=== PATIENT | male | born 1960 | race African-American/Black ===

== ENCOUNTER 2016-09-29 07:51 | Inpatient (IN) | payer MEDICARE, MEDICAID ==
[~2016-09-29] VITALS: Ht 172.7 cm; Wt 88.5 kg
[2016-09-29] MEDS ORDERED: PROMETHAZINE 5 ML/6.25 MG 118ML LIQ PO ONE (10:30)
[2016-09-29 10:59] LABS: BASOPHILS % 0.8 % (0.0-2.0); EOSINOPHILS % 2.7 % (0.0-5.0); HEMATOCRIT. 43.5 % (42.0-52.0); HEMOGLOBIN. 14.2 g/dL (14.0-18.0); LYMPHOCYTES % 28.1 % (20.0-50.0); MEAN CORPUSCULAR HGB CONC 32.8 g/dL (31.0-37.0); MEAN CORPUSCULAR VOLUME 88.6 fL (80.0-94.0); MEAN PLATELET VOLUME 9.3 fl (7.4-10.4); MONOCYTES % 9.8 % (2.0-8.0); NEUTROPHILS % 58.6 % (40.0-76.0); PLATELET 203 x1000/uL (130-400); RED BLOOD CELL COUNT 4.91 mill/uL (4.7-6.1); RED CELL DISTRIBUTION WIDTH 15.7 % (11.6-14.6); WHITE BLOOD COUNT 6.8 x1000/uL (4.5-11.0)
[2016-09-29 11:02] LABS: INR 1.3; PROTHROMBIN TIME 13.2 sec
[2016-09-29 11:12] LABS: ALANINE AMINOTRANSFERASE 43 IU/L (13-61); ANION GAP 12; CALCIUM 8.7 mg/dL (8.5-10.1); CARBON DIOXIDE 26 mEq/L (21-32); CHLORIDE 107 mEq/L (98-107); INDEX HEMOLYSI 1 (1-3); INDEX ICTERIC 1 (1-4); INDEX LIPEMIC 1 (1-3); LIPASE 196 IU/L (73-393); NT PRO B-TYPE NATRIURETIC PEP 11378 pg/mL (5-125); UREA NITROGEN BLOOD 18 mg/dL (7-21); eGFR 55 mL/min (>60)
[2016-09-29] MEDS ORDERED: DEXTROSE 50% WATER 50ML SYRINGE IV PRN (20:00)
[2016-09-29] MEDS ORDERED: ONDANSETRON HCL 4MG/2ML VIAL IV PRN (20:00)
[2016-09-29] MEDS ORDERED: ACETAMINOPHEN 325MG TABLET PO PRN (20:00)
[2016-09-29] MEDS ORDERED: MAGNESIUM/ALUMINUM HYDROXIDE/SIMETHICONE 30ML UDC PO PRN (20:00)
[2016-09-29] MEDS ORDERED: CLONIDINE 0.1MG TABLET PO PRN (20:00)
[2016-09-29] MEDS ORDERED: DIPHENHYDRAMINE 50MG/ML VIAL IV PRN (20:00)
[2016-09-29 20:40] LABS: T4 FREE 1.46 ng/dL (0.76-1.46)
[2016-09-29 20:43] LABS: THYROID STIMULATING HORMONE 2.3 uIU/mL (0.36-3.74)
[2016-09-29] MEDS ORDERED: GUAIFENESIN/CODEINE 100-10MG/5ML UDC PO PRN (20:45)
[2016-09-29] MEDS ORDERED: TEMAZEPAM 15MG CAPSULE PO PRN (21:00)
[2016-09-29] MEDS: INSULIN LISPRO 100 UNITS/ML SUBCUT SCH (21:48)
[2016-09-29] MEDS: BLOOD SUGAR DIAGNOSTIC STRIP TEST SCH (21:48)
[2016-09-29] MEDS: DILTIAZEM HCL 90MG TABLET PO SCH (21:50)
[2016-09-29] MEDS: SODIUM CHLORIDE 0.9% INJ 3ML FLUSH IVF SCH (21:51)
[2016-09-29 22:36] VITALS: BP 148/124
[2016-09-30] VITALS: BP 132/103
[2016-09-30 04:00] VITALS: BP 131/110
[2016-09-30 04:37] LABS: *AMPHETAMINES SCREEN URINE NEGATIVE (NEGATIVE); *BARBITURATES SCREEN URINE NEGATIVE (NEGATIVE); *BENZODIAZEPINES SCREEN URINE NEGATIVE (NEGATIVE); *COCAINE SCREEN URINE PRESUMTIVE POSITIVE (NEGATIVE); CANNABINOID URINE SCREEN PRESUMTIVE POSITIVE (NEGATIVE); ECSTASY MDMA SCREEN URINE NEGATIVE (NEGATIVE); METHADONE URINE SCREEN NEGATIVE (NEGATIVE); OPIATES URINE SCREEN NEGATIVE (NEGATIVE); PHENCYCLIDINE URINE SCREEN NEGATIVE (NEGATIVE)
[2016-09-30] MEDS: DILTIAZEM HCL 90MG TABLET PO SCH (06:19)
[2016-09-30] MEDS: SODIUM CHLORIDE 0.9% INJ 3ML FLUSH IVF SCH ×3 (06:19→22:00)
[2016-09-30] MEDS: BLOOD SUGAR DIAGNOSTIC STRIP TEST SCH ×4 (06:22→20:35)
[2016-09-30 06:53] LABS: TROPONIN I 0.14 ng/mL (0.00-0.04)
[2016-09-30] MEDS: INSULIN LISPRO 100 UNITS/ML SUBCUT SCH ×4 (07:50→20:35)
[2016-09-30 08:00] VITALS: BP 129/97
[2016-09-30] MEDS: LOSARTAN POTASSIUM 50 MG TABLET PO SCH (09:15)
[2016-09-30] MEDS: ENOXAPARIN 40MG/0.4ML SYR SUBCUT SCH (09:15)
[2016-09-30 12:31] LABS: BG BASE EXCESS -0.7 mmol/L (-2.0-2.0); BG CARBOXYHEMOGLOBIN 0.9 % (0.5-1.5); BG DEOXYHEMOGLOBIN 3.3 % (0.0-5.0); BG FRACTION INSPIRED OXYGEN 28; BG METHEMOGLOBIN 0.3 % (0.0-1.5); BG OXYGEN SATURATION 96.7 % (92.0-98.5); BG OXYHEMOGLOBIN 95.5 % (94.0-97.0); BG PCO2 39.8 mmHg (35.0-45.0); BG PH 7.398 (7.350-7.450); BG PO2 87.1 mmHg (75.0-100.0); BG SAMPLE SITE LEFT BRACHIAL; BG VENT MODE NASAL CANNULA
[2016-09-30] MEDS: FUROSEMIDE 40MG/4ML VIAL IVP SCH ×2 (12:35→19:43)
[2016-09-30 15:30] VITALS: BP 119/97
[2016-09-30 16:25] LABS: ALANINE AMINOTRANSFERASE 45 IU/L (13-61); ALBUMIN 2.9 g/dL (3.4-5.0); ANION GAP 12; CALCIUM 8.5 mg/dL (8.5-10.1); CARBON DIOXIDE 28 mEq/L (21-32); CHLORIDE 106 mEq/L (98-107); CREATINE KINASE 160 IU/L (39-308); CREATINE KINASE MB FRACTION 5.3 ng/mL (0.5-3.6); INDEX HEMOLYSI 1 (1-3); INDEX ICTERIC 1 (1-4); INDEX LIPEMIC 1 (1-3); TROPONIN I 0.09 ng/mL (0.00-0.04); UREA NITROGEN BLOOD 19 mg/dL (7-21); eGFR 51 mL/min (>60)
[2016-09-30 16:26] LABS: T4 FREE 1.34 ng/dL (0.76-1.46)
[2016-09-30 20:00] VITALS: BP 129/106
[2016-09-30 20:09] LABS: *AMPHETAMINES SCREEN URINE NEGATIVE (NEGATIVE); *BARBITURATES SCREEN URINE NEGATIVE (NEGATIVE); *BENZODIAZEPINES SCREEN URINE NEGATIVE (NEGATIVE); *COCAINE SCREEN URINE NEGATIVE (NEGATIVE); CANNABINOID URINE SCREEN NEGATIVE (NEGATIVE); ECSTASY MDMA SCREEN URINE NEGATIVE (NEGATIVE); METHADONE URINE SCREEN NEGATIVE (NEGATIVE); OPIATES URINE SCREEN NEGATIVE (NEGATIVE); PHENCYCLIDINE URINE SCREEN NEGATIVE (NEGATIVE)
[2016-09-30] MEDS: HYDRALAZINE HCL 25MG TABLET PO SCH (20:34)
[2016-09-30 23:37] LABS: CREATINE KINASE MB FRACTION 4.7 ng/mL (0.5-3.6); TROPONIN I 0.09 ng/mL (0.00-0.04)
[2016-10-01] VITALS: BP 128/99
[2016-10-01 04:18] VITALS: BP 128/102
[2016-10-01] MEDS: SODIUM CHLORIDE 0.9% INJ 3ML FLUSH IVF SCH ×3 (06:00→21:16)
[2016-10-01] MEDS: FUROSEMIDE 40MG/4ML VIAL IVP SCH ×2 (07:15→16:17)
[2016-10-01] MEDS: INSULIN LISPRO 100 UNITS/ML SUBCUT SCH ×4 (07:16→21:15)
[2016-10-01] MEDS: BLOOD SUGAR DIAGNOSTIC STRIP TEST SCH ×4 (07:21→21:15)
[2016-10-01 07:30] VITALS: BP 145/116
[2016-10-01] MEDS: HYDRALAZINE HCL 25MG TABLET PO SCH ×3 (08:03→21:16)
[2016-10-01] MEDS: LOSARTAN POTASSIUM 50 MG TABLET PO SCH (08:03)
[2016-10-01] MEDS: ASPIRIN 81MG TABLET PO SCH (08:03)
[2016-10-01] MEDS: ENOXAPARIN 40MG/0.4ML SYR SUBCUT SCH (08:04)
[2016-10-01 08:39] LABS: CALCIUM 8.6 mg/dL (8.5-10.1); CREATINE KINASE MB FRACTION 3.6 ng/mL (0.5-3.6); MAGNESIUM 2.2 mg/dL (1.8-2.4); TROPONIN I 0.1 ng/mL (0.00-0.04)
[2016-10-01 12:00] VITALS: BP 122/84
[2016-10-01] MEDS ORDERED: IPRATROPIUM/ALBUTEROL 0.5-3(2.5)MG/3ML NEB HHN PRN (12:30)
[2016-10-01 16:00] VITALS: BP 123/99
[2016-10-01] MEDS ORDERED: REGADENOSON 0.4 MG/5 ML IV NR (16:00)
[2016-10-01 20:00] VITALS: BP 105/74
[2016-10-02] VITALS: BP 132/103
[2016-10-02 04:00] VITALS: BP 108/76
[2016-10-02] MEDS: HYDRALAZINE HCL 25MG TABLET PO SCH ×2 (06:00→14:00)
[2016-10-02] MEDS: SODIUM CHLORIDE 0.9% INJ 3ML FLUSH IVF SCH ×2 (06:09→15:50)
[2016-10-02] MEDS: FUROSEMIDE 40MG/4ML VIAL IVP SCH (06:15)
[2016-10-02] MEDS: BLOOD SUGAR DIAGNOSTIC STRIP TEST SCH ×2 (06:21→12:58)
[2016-10-02] MEDS: INSULIN LISPRO 100 UNITS/ML SUBCUT SCH ×2 (07:50→12:50)
[2016-10-02 08:00] VITALS: BP 129/111
[2016-10-02 08:00] LABS: CALCIUM 8.6 mg/dL (8.5-10.1); MAGNESIUM 2.1 mg/dL (1.8-2.4)
[2016-10-02] MEDS: ASPIRIN 81MG TABLET PO SCH (08:29)
[2016-10-02] MEDS: LOSARTAN POTASSIUM 50 MG TABLET PO SCH (08:29)
[2016-10-02] MEDS: ENOXAPARIN 40MG/0.4ML SYR SUBCUT SCH (08:50)
[2016-10-02] MEDS ORDERED: POTASSIUM CHLORIDE 20MEQ TABLET SR PO SCH ×2 (10:00→14:30)
[2016-10-02 12:05] VITALS: BP 137/109
[2016-10-02] MEDS ORDERED: REGADENOSON 0.4 MG/5 ML IV ONE (13:52)
[2016-10-02 17:34] VITALS: BP 101/68
[2016-10-02] MEDS ORDERED: LOSARTAN POTASSIUM 50 MG TABLET PO SCH (18:45)
[2016-10-02] MEDS ORDERED: CARVEDILOL 3.125 MG TABLET PO SCH (21:00)
[2016-10-03 19:07] LABS: ANTI-NUCLEAR ANTIBODIES DIRECT Negative (Negative)
== END 2016-10-02 18:05 | disposition home or self-care (01) | DRG 291 ==
LOC: ER 08:46 → 6WST 12:00
PROVIDERS: ADMIT Internal Medicine; ATTEND Internal Medicine
DX: I13.0 Hypertensive heart and chronic kidney disease with heart failure and stage 1 through stage 4 chronic kidney disease, or unspecified chronic kidney disease (principal); N17.0 Acute kidney failure with tubular necrosis; J96.00 Acute respiratory failure, unspecified whether with hypoxia or hypercapnia; I50.41 Acute combined systolic (congestive) and diastolic (congestive) heart failure; E44.1 Mild protein-calorie malnutrition; J44.1 Chronic obstructive pulmonary disease with (acute) exacerbation; I42.9 Cardiomyopathy, unspecified; N18.9 Chronic kidney disease, unspecified; I27.81 Cor pulmonale (chronic); I27.2 Other secondary pulmonary hypertension; E11.40 Type 2 diabetes mellitus with diabetic neuropathy, unspecified; F12.10 Cannabis abuse, uncomplicated; E11.21 Type 2 diabetes mellitus with diabetic nephropathy; E11.22 Type 2 diabetes mellitus with diabetic chronic kidney disease; F14.10 Cocaine abuse, uncomplicated; D64.9 Anemia, unspecified; E78.5 Hyperlipidemia, unspecified; M79.1 Myalgia; Z83.3 Family history of diabetes mellitus; Z87.891 Personal history of nicotine dependence; Z90.49 Acquired absence of other specified parts of digestive tract; Z90.5 Acquired absence of kidney; Z93.3 Colostomy status; Z68.29 Body mass index [BMI] 29.0-29.9, adult
CPT/HCPCS: 36415; 36600; 71010; 78452; 80048; 80053; 80061; 80305; 82375; 82550; 82553; 82805; 82962; 83036; 83690; 83735; 83880; 84439; 84443; 84484; 85025; 85379; 85610; 86038; 86431; 86666; 93005; 93017; 93306; 93970; 99285; A9500; J1650; J1815; J1940; J2785; Q0169

== ENCOUNTER 2017-12-25 14:11 | Inpatient (IN) | payer MEDICARE, MEDICAID ==
[~2017-12-25] VITALS: Ht 172.7 cm; Wt 90.7 kg
[2017-12-25 16:32] LABS: BASOPHILS % 0.6 % (0.0-2.0); EOSINOPHILS % 0.3 % (0.0-5.0); HEMATOCRIT. 44.6 % (42.0-52.0); HEMOGLOBIN. 14.1 g/dL (14.0-18.0); LYMPHOCYTES % 16.7 % (20.0-50.0); MEAN CORPUSCULAR HEMOGLOBIN 27.2 pg (28.0-32.0); MEAN CORPUSCULAR VOLUME 85.7 fL (80.0-94.0); MEAN PLATELET VOLUME 9.1 fl (7.4-10.4); MONOCYTES % 8.8 % (2.0-8.0); NEUTROPHILS % 73.6 % (40.0-76.0); PLATELET 207 x1000/uL (130-400); RED CELL DISTRIBUTION WIDTH 16.9 % (11.6-14.6)
[2017-12-25 16:34] LABS: CHLORIDE 109 mEq/L (98-107)
[2017-12-25 16:51] LABS: INR 1.4; PARTIAL THROMBOPLASTIN TIME 28.2 sec (23.4-31.0); PROTHROMBIN TIME 14.3 sec (9.4-11.6)
[2017-12-25] MEDS ORDERED: ALBUTEROL (0.083%) 2.5MG/3ML NEB HHN STA (18:33)
[2017-12-25] MEDS ORDERED: IPRATROPIUM BROMIDE (0.02%) 0.5MG/2.5ML NEB HHN STA (18:33)
[2017-12-25] MEDS ORDERED: AZITHROMYCIN 500 MG in DEXT 5% WATER 250 ML IV STA (18:33)
[2017-12-25] MEDS ORDERED: FUROSEMIDE 20MG/2ML VIAL IVP ONE (18:45)
[2017-12-25] MEDS ORDERED: CEFTRIAXONE 1 G PREMIX 50 ML IV ONE (18:45)
[2017-12-25] MEDS ORDERED: NA PHOS,M-B/NA PHOS,DI-BA ENEMA 118ML PR PRN (20:00)
[2017-12-25] MEDS ORDERED: MAGNESIUM/ALUMINUM HYDROXIDE/SIMETHICONE 30ML UDC PO PRN (20:00)
[2017-12-25] MEDS ORDERED: CLONIDINE 0.1MG TABLET PO PRN (20:00)
[2017-12-25] MEDS ORDERED: DOCUSATE SODIUM 100MG CAPSULE PO PRN (20:00)
[2017-12-25] MEDS ORDERED: IPRATROPIUM/ALBUTEROL 0.5-3(2.5)MG/3ML NEB INH PRN (20:00)
[2017-12-25] MEDS ORDERED: ACETAMINOPHEN 650MG/20.3ML UDC GT PRN (20:00)
[2017-12-25] MEDS ORDERED: ACETAMINOPHEN 325MG TABLET PO PRN (20:00)
[2017-12-25] MEDS ORDERED: HYDROCODONE/ACETAMINOPHEN 5/325MG TABLET PO PRN (20:00)
[2017-12-25] MEDS ORDERED: ACETAMINOPHEN 650MG SUPP PR PRN (20:00)
[2017-12-25] MEDS ORDERED: DIPHENHYDRAMINE 50MG/ML VIAL IV PRN (20:00)
[2017-12-25] MEDS ORDERED: LEVOFLOXACIN 500MG PREMIX 100 ML IV SCH (22:00)
[2017-12-25 23:00] VITALS: BP 132/102
[2017-12-25] MEDS: ENOXAPARIN 40MG/0.4ML SYR SUBCUT SCH (23:41)
[2017-12-25] MEDS: SODIUM CHLORIDE 0.45% 1,000 ML IV SCH (23:46)
[2017-12-26] VITALS: BP 114/93
[2017-12-26] MEDS ORDERED: DEXTROSE 50% WATER 50ML SYRINGE IV PRN ×2
[2017-12-26] MEDS: GUAIFENESIN 200MG/10ML SUGAR FREE UDC PO PRN ×4 (00:28→17:18)
[2017-12-26] MEDS: IPRATROPIUM/ALBUTEROL 0.5-3(2.5)MG/3ML NEB INH SCH ×5 (00:48→20:02)
[2017-12-26 00:56] LABS: CREATINE KINASE MB FRACTION 4.9 ng/mL (0.5-3.6)
[2017-12-26] MEDS: CEFEPIME 2,000 MG in DEXT 5% WATER 100 ML IV SCH ×3 (01:21→20:55)
[2017-12-26 01:26] LABS: BG BASE EXCESS -3.8 mmol/L (-2.0-2.0); BG CARBOXYHEMOGLOBIN 1.5 % (0.5-1.5); BG DEOXYHEMOGLOBIN 1.5 % (0.0-5.0); BG FRACTION INSPIRED OXYGEN 28; BG HCO3 ACT 18.8 mmol/L (22.0-26.0); BG METHEMOGLOBIN 0.3 % (0.0-1.5); BG OXYGEN SATURATION 98.5 % (92.0-98.5); BG OXYHEMOGLOBIN 96.7 % (94.0-97.0); BG PCO2 27.8 mmHg (35.0-45.0); BG PH 7.447 (7.350-7.450); BG PO2 113.7 mmHg (75.0-100.0); BG SAMPLE SITE RIGHT RADIAL; BG TOTAL HEMOGLOBIN 13.8 g/dL (12.0-18.0); BG VENT MODE NASAL CANNULA
[2017-12-26] MEDS ORDERED: FERR325T6 PO (02:13)
[2017-12-26] MEDS ORDERED: SEVE800T8 MT (02:13)
[2017-12-26] MEDS ORDERED: SIMV20TA6 PO (02:13)
[2017-12-26] MEDS ORDERED: LOSA25TA12 PO (02:13)
[2017-12-26] MEDS ORDERED: ASPI-1158 PO (02:13)
[2017-12-26] MEDS ORDERED: INSNPH SUBCUT (02:13)
[2017-12-26] MEDS ORDERED: ZET10 PO (02:13)
[2017-12-26] MEDS ORDERED: INSU100I24 SQ (02:13)
[2017-12-26 04:00] VITALS: BP 136/105
[2017-12-26] MEDS: SODIUM CHLORIDE 0.9% INJ 3ML FLUSH IVF SCH ×3 (06:33→22:09)
[2017-12-26] MEDS ORDERED: BLOOD SUGAR DIAGNOSTIC STRIP TEST SCH (07:20)
[2017-12-26 07:45] LABS: BASOPHILS % 0.5 % (0.0-2.0); EOSINOPHILS % 0.7 % (0.0-5.0); HEMATOCRIT. 42.5 % (42.0-52.0); HEMOGLOBIN. 13.6 g/dL (14.0-18.0); LYMPHOCYTES % 20.9 % (20.0-50.0); MEAN CORPUSCULAR HEMOGLOBIN 27.4 pg (28.0-32.0); MEAN CORPUSCULAR VOLUME 85.5 fL (80.0-94.0); MEAN PLATELET VOLUME 9.5 fl (7.4-10.4); MONOCYTES % 9.8 % (2.0-8.0); NEUTROPHILS % 68.1 % (40.0-76.0); PLATELET 197 x1000/uL (130-400); RED BLOOD CELL COUNT 4.97 mill/uL (4.7-6.1); RED CELL DISTRIBUTION WIDTH 16.6 % (11.6-14.6)
[2017-12-26] MEDS ORDERED: INSULIN LISPRO 100 UNITS/ML SUBCUT SCH (07:50)
[2017-12-26 08:00] VITALS: BP 133/103
[2017-12-26 08:47] LABS: CHLORIDE 109 mEq/L (98-107)
[2017-12-26 08:59] LABS: PHOSPHORUS 3.3 mg/dL (2.5-4.9)
[2017-12-26 09:00] LABS: LDL CHOLESTEROL 47 mg/dL (5-100)
[2017-12-26] MEDS ORDERED: FUROSEMIDE 40MG/4ML VIAL IVP SCH (09:00)
[2017-12-26 09:01] LABS: CREATINE KINASE 151 IU/L (39-308); CREATINE KINASE MB FRACTION 4.5 ng/mL (0.5-3.6); HDL CHOLESTEROL 39 mg/dL (40-59)
[2017-12-26] MEDS: LOSARTAN POTASSIUM 25 MG TABLET PO SCH (09:17)
[2017-12-26] MEDS: SODIUM CHLORIDE 0.45% 1,000 ML IV SCH (09:18)
[2017-12-26] MEDS: AZITHROMYCIN 250 MG TABLET PO SCH (09:18)
[2017-12-26 12:00] VITALS: BP 126/94
[2017-12-26] MEDS: BENZONATATE 100MG CAPSULE PO SCH ×2 (12:25→22:08)
[2017-12-26 16:00] VITALS: BP 124/97
[2017-12-26] MEDS: FUROSEMIDE 100MG/10ML VIAL IVP SCH (17:13)
[2017-12-26 20:00] VITALS: BP 137/111
[2017-12-26] MEDS ORDERED: LEVOFLOXACIN 500MG PREMIX 100 ML IV SCH ×2 (20:00→21:00)
[2017-12-26] MEDS ORDERED: GUAIFENESIN-DM 200MG-20MG/10ML UDC PO PRN (20:30)
[2017-12-26 22:05] LABS: CLARITY URINE CLEAR (CLEAR); COLOR URINE YELLOW (YELLOW); KETONES URINE NEGATIVE (NEGATIVE); LEUKOCYTE ESTERASE URINE NEGATIVE (NEGATIVE); NITRITE URINE NEGATIVE (NEGATIVE); OCCULT BLOOD URINE NEGATIVE (NEGATIVE); PH URINE 5.5 (4.5-8.0); PROTEIN URINE TRACE (NEGATIVE); SPECIFIC GRAVITY URINE 1.009 (1.005-1.030); UROBILINOGEN URINE 0.2 E.U./dL (0.2-1.0)
[2017-12-26] MEDS: ENOXAPARIN 40MG/0.4ML SYR SUBCUT SCH (22:09)
[2017-12-26 22:44] LABS: *AMPHETAMINES SCREEN URINE NEGATIVE (NEGATIVE); *BARBITURATES SCREEN URINE NEGATIVE (NEGATIVE); *BENZODIAZEPINES SCREEN URINE NEGATIVE (NEGATIVE); *COCAINE SCREEN URINE PRESUMTIVE POSITIVE (NEGATIVE); METHADONE URINE SCREEN NEGATIVE (NEGATIVE); OPIATES URINE SCREEN NEGATIVE (NEGATIVE)
[2017-12-26 22:45] LABS: CANNABINOID URINE SCREEN NEGATIVE (NEGATIVE); PHENCYCLIDINE URINE SCREEN NEGATIVE (NEGATIVE)
[2017-12-27 00:11] VITALS: BP 128/91
[2017-12-27] MEDS: IPRATROPIUM/ALBUTEROL 0.5-3(2.5)MG/3ML NEB INH SCH ×4 (01:27→20:30)
[2017-12-27 04:00] VITALS: BP 114/83
[2017-12-27] MEDS: BENZONATATE 100MG CAPSULE PO SCH ×3 (05:48→21:24)
[2017-12-27] MEDS: SODIUM CHLORIDE 0.9% INJ 3ML FLUSH IVF SCH ×3 (05:48→21:24)
[2017-12-27] MEDS: FUROSEMIDE 100MG/10ML VIAL IVP SCH ×2 (06:27→17:43)
[2017-12-27 08:00] VITALS: BP 126/98
[2017-12-27] MEDS ORDERED: METOLAZONE 2.5MG TABLET PO SCH (09:00)
[2017-12-27] MEDS: LOSARTAN POTASSIUM 25 MG TABLET PO SCH (09:02)
[2017-12-27] MEDS: AZITHROMYCIN 250 MG TABLET PO SCH (09:02)
[2017-12-27] MEDS: ACETYLCYSTEINE 100MG/ML 10% VIAL 4ML INH SCH ×2 (10:02→14:23)
[2017-12-27 10:46] LABS: BASOPHILS % 0.5 % (0.0-2.0); EOSINOPHILS % 1.9 % (0.0-5.0); HEMATOCRIT. 43.3 % (42.0-52.0); HEMOGLOBIN. 13.8 g/dL (14.0-18.0); MEAN CORPUSCULAR VOLUME 84.8 fL (80.0-94.0); MEAN PLATELET VOLUME 9.2 fl (7.4-10.4); MONOCYTES % 10.2 % (2.0-8.0); NEUTROPHILS % 67.4 % (40.0-76.0); PLATELET 232 x1000/uL (130-400); RED BLOOD CELL COUNT 5.11 mill/uL (4.7-6.1); RED CELL DISTRIBUTION WIDTH 16.6 % (11.6-14.6)
[2017-12-27 10:56] LABS: CHLORIDE 103 mEq/L (98-107)
[2017-12-27] MEDS: CEFEPIME 2,000 MG in DEXT 5% WATER 100 ML IV SCH ×2 (11:05→21:24)
[2017-12-27 11:09] LABS: PHOSPHORUS 2.9 mg/dL (2.5-4.9)
[2017-12-27 12:00] VITALS: BP 112/88
[2017-12-27 16:00] VITALS: BP 104/76
[2017-12-27 20:00] VITALS: BP 133/95
[2017-12-27] MEDS: ENOXAPARIN 40MG/0.4ML SYR SUBCUT SCH (22:29)
[2017-12-28] VITALS: BP 103/68
[2017-12-28] MEDS: ACETYLCYSTEINE 100MG/ML 10% VIAL 4ML INH SCH ×5 (01:41→22:39)
[2017-12-28] MEDS: IPRATROPIUM/ALBUTEROL 0.5-3(2.5)MG/3ML NEB INH SCH ×4 (01:41→20:36)
[2017-12-28 04:00] VITALS: BP 125/86
[2017-12-28] MEDS: BENZONATATE 100MG CAPSULE PO SCH ×3 (05:08→21:28)
[2017-12-28] MEDS: SODIUM CHLORIDE 0.9% INJ 3ML FLUSH IVF SCH ×3 (05:09→21:30)
[2017-12-28] MEDS: FUROSEMIDE 100MG/10ML VIAL IVP SCH ×2 (06:26→17:17)
[2017-12-28 06:32] LABS: BASOPHILS % 0.8 % (0.0-2.0); EOSINOPHILS % 3.3 % (0.0-5.0); HEMOGLOBIN. 13.5 g/dL (14.0-18.0); LYMPHOCYTES % 19.4 % (20.0-50.0); MEAN CORPUSCULAR VOLUME 84.1 fL (80.0-94.0); MEAN PLATELET VOLUME 9.1 fl (7.4-10.4); MONOCYTES % 11.4 % (2.0-8.0); NEUTROPHILS % 65.1 % (40.0-76.0); PLATELET 221 x1000/uL (130-400); RED BLOOD CELL COUNT 4.99 mill/uL (4.7-6.1); RED CELL DISTRIBUTION WIDTH 16.8 % (11.6-14.6)
[2017-12-28 07:22] LABS: CHLORIDE 101 mEq/L (98-107)
[2017-12-28 07:32] LABS: PHOSPHORUS 3.2 mg/dL (2.5-4.9)
[2017-12-28 07:50] VITALS: BP 121/95
[2017-12-28] MEDS: CEFEPIME 2,000 MG in DEXT 5% WATER 100 ML IV SCH ×2 (09:17→21:24)
[2017-12-28] MEDS: AZITHROMYCIN 250 MG TABLET PO SCH (09:17)
[2017-12-28] MEDS: LOSARTAN POTASSIUM 25 MG TABLET PO SCH (09:17)
[2017-12-28 11:48] VITALS: BP 116/88
[2017-12-28 16:00] VITALS: BP 115/87
[2017-12-28] MEDS: ENOXAPARIN 40MG/0.4ML SYR SUBCUT SCH ×2 (22:45→22:47)
[2017-12-29 00:09] VITALS: BP 104/71
[2017-12-29] MEDS: IPRATROPIUM/ALBUTEROL 0.5-3(2.5)MG/3ML NEB INH SCH ×3 (02:04→14:33)
[2017-12-29 04:00] VITALS: BP 114/84
[2017-12-29] MEDS: BENZONATATE 100MG CAPSULE PO SCH ×2 (07:02→14:30)
[2017-12-29] MEDS: FUROSEMIDE 100MG/10ML VIAL IVP SCH (07:02)
[2017-12-29] MEDS: SODIUM CHLORIDE 0.9% INJ 3ML FLUSH IVF SCH ×2 (07:03→14:31)
[2017-12-29 08:00] VITALS: BP 114/78
[2017-12-29] MEDS: ACETYLCYSTEINE 100MG/ML 10% VIAL 4ML INH SCH ×2 (08:45→14:33)
[2017-12-29] MEDS: CEFEPIME 2,000 MG in DEXT 5% WATER 100 ML IV SCH (09:10)
[2017-12-29] MEDS: LOSARTAN POTASSIUM 25 MG TABLET PO SCH (09:10)
[2017-12-29] MEDS: AZITHROMYCIN 250 MG TABLET PO SCH (09:10)
[2017-12-29] MEDS ORDERED: LOSA25TA3 PO (16:26)
[2017-12-29] MEDS ORDERED: AZIT250T12 PO (16:26)
[2017-12-29] MEDS ORDERED: FURO-151 PO (16:27)
[2017-12-29 16:59] VITALS: BP 115/85
== END 2017-12-29 17:25 | disposition home or self-care (01) | DRG 871 ==
LOC: ER 15:53 → EDBEDREQ 17:55 → 6WST 18:45 → EDBEDREQ 18:46 → EDBEDREQTM 18:46 → ENRESERV 20:21 → 6WST 22:20
PROVIDERS: ADMIT Family Medicine; ATTEND Family Medicine
DX: A41.9 Sepsis, unspecified organism (principal); N18.6 End stage renal disease; I50.23 Acute on chronic systolic (congestive) heart failure; J96.01 Acute respiratory failure with hypoxia; J18.1 Lobar pneumonia, unspecified organism; I13.2 Hypertensive heart and chronic kidney disease with heart failure and with stage 5 chronic kidney disease, or end stage renal disease; E87.2 Acidosis; D68.9 Coagulation defect, unspecified; N17.9 Acute kidney failure, unspecified; D63.8 Anemia in other chronic diseases classified elsewhere; E78.5 Hyperlipidemia, unspecified; F17.210 Nicotine dependence, cigarettes, uncomplicated; I27.81 Cor pulmonale (chronic); E11.22 Type 2 diabetes mellitus with diabetic chronic kidney disease; F14.90 Cocaine use, unspecified, uncomplicated; Z60.2 Problems related to living alone; R79.89 Other specified abnormal findings of blood chemistry; K57.90 Diverticulosis of intestine, part unspecified, without perforation or abscess without bleeding; J44.9 Chronic obstructive pulmonary disease, unspecified; R74.8 Abnormal levels of other serum enzymes; R74.0 Nonspecific elevation of levels of transaminase and lactic acid dehydrogenase [LDH]; Z82.49 Family history of ischemic heart disease and other diseases of the circulatory system; Z79.4 Long term (current) use of insulin; Z83.3 Family history of diabetes mellitus; Z90.49 Acquired absence of other specified parts of digestive tract; Z93.3 Colostomy status; Z90.5 Acquired absence of kidney; Z79.899 Other long term (current) drug therapy; Z79.82 Long term (current) use of aspirin
CPT/HCPCS: 36415; 36600; 71045; 71250; 76700; 78582; 80048; 80053; 80061; 80305; 81003; 82375; 82550; 82553; 82805; 82962; 83036; 83605; 83735; 83880; 84100; 84145; 84443; 84484; 85025; 85610; 85730; 87040; 87070; 93005; 93970; 94618; 94640; 96365; 96375; 99291; A9558; C1893; J0456; J0692; J0696; J1200; J1650; J1940; J1956; J7060; J7608; J7611; J7620